=== PATIENT | female | born 1955 | race African-American/Black ===

== ENCOUNTER 2019-09-29 04:09 | Observation (INO) ==
[2019-09-29] MEDS ORDERED: ALUM/MAG/SIMETH/LIDO VISC 1:1 30 ML BOTTLE PO STA (04:23)
[2019-09-29] MEDS ORDERED: ASPIRIN 325 MG TABLET PO STA (04:23)
[2019-09-29] MEDS ORDERED: NITROGLYCERIN 2% OINT 1 INCH/GM PACK TOP STA (04:23)
[2019-09-29] MEDS ORDERED: MORPHINE 4 MG/1 ML VIAL IV STA (04:23)
[2019-09-29] MEDS ORDERED: ONDANSETRON 4 MG/2 ML VIAL IV STA (04:23)
[2019-09-29] MEDS ORDERED: ONDANSETRON 4 MG/2 ML VIAL ONE (04:33)
[2019-09-29] MEDS ORDERED: NITROGLYCERIN 2% OINT 1 INCH/GM PACK TOP ONE (04:33)
[2019-09-29] MEDS ORDERED: ASPIRIN 325 MG TABLET ONE (04:34)
[2019-09-29] MEDS ORDERED: ALUM/MAG/SIMETH/LIDO VISC 1:1 30 ML BOTTLE PO ONE (04:34)
[2019-09-29] MEDS ORDERED: MORPHINE 4 MG/1 ML VIAL ONE (04:34)
[2019-09-29 04:59] LABS: Basophils # 0.1 10*3/uL (0.0-0.2); Basophils % 0.5 % (0.0-0.8); Eosinophils # 0.3 10*3/uL (0.0-0.87); Eosinophils % 2.8 % (0.00-10.9); Hematocrit 41.6 VOL% (35.7-47.0); Hemoglobin 13.4 GM/DL (12.0-16.0); Immature Granulocytes % 0.2 %; Immature Granulocytes Absolute 0.02 #; Lymphocytes # 2.3 10*3/uL (1.4-4.0); Lymphocytes % 24.7 % (21.3-54.2); Mean Corpuscular HGB Conc 32.2 GM/DL (32-36); Mean Platelet Volume 10.6 FL (9.6-12.0); Monocytes % 6.1 % (1.7-12.7); Neutrophils % 65.7 % (38.7-73.9); Platelet Count 235 T/CUMM (130-400); Red Blood Count 4.29 MC/CUMM (3.8-5.5); Red Cell Distribution Width 12.5 % (9.3-17.3); White Blood Count 9.4 T/CUMM (4-12)
[2019-09-29 05:00] LABS: Apearance,Urine CLEAR (Clear); Bilirubin,Urine Negative (Negative); Blood, Urine Negative (Negative); Glucose,Urine (UA) Negative (Negative); Ketones,Urine Negative (Negative); Nitrite,Urine Negative (Negative); Protein,Urine Negative; RBC,Urine 3 /HPF (0-4); Urine Color Colorless (Yellow); Urine Specific Gravity 1.003 (1.001-1.035); Urine Urobilinogen < 2.0 EU/DL (0.2-1.0); WBC,Urine <1 /HPF (0-6)
[2019-09-29 05:08] LABS: PT Patient Result 10.8 SECS (9.6-12.2)
[2019-09-29 05:17] LABS: Albumin 3.8 G/DL (3.4-5.0); Bilirubin,Total 0.4 MG/DL (0.2-1.0); Calcium 9.4 MG/DL (8.5-10.1); Osmolality,Calculated 285.1 MOS/KG (273-304); Total Protein 7.7 G/DL (6.4-8.3)
[2019-09-29] MEDS ORDERED: hydrALAZINE 20 MG/1 ML VIAL IV STA (05:23)
[2019-09-29] MEDS ORDERED: ACETAMINOPHEN 325 MG TABLET PO PRN (05:31)
[2019-09-29] MEDS ORDERED: MORPHINE 4 MG/1 ML VIAL IV PRN (05:31)
[2019-09-29] MEDS ORDERED: guaiFENesin/DM ER 600-30 MG TABLET PO PRN (05:31)
[2019-09-29] MEDS ORDERED: ONDANSETRON 4 MG/2 ML VIAL IV PRN (05:31)
[2019-09-29] MEDS ORDERED: PROMETHAZINE 25 MG TABLET PO PRN (05:31)
[2019-09-29] MEDS ORDERED: DOCUSATE SODIUM 100 MG CAPSULE PO PRN (05:31)
[2019-09-29] MEDS ORDERED: hydrALAZINE 20 MG/1 ML VIAL IV PRN (05:36)
[2019-09-29] MEDS ORDERED: ENOXAPARIN 40 MG/0.4 ML SYRINGE SUBCUT SCH (06:00)
[2019-09-29] MEDS ORDERED: NITROGLYCERIN SL 0.4 MG TABLET SL PRN (06:12)
[2019-09-29] MEDS ORDERED: hydroCHLOROthiazide 12.5 MG CAPSULE PO SCH (09:00)
[2019-09-29] MEDS ORDERED: PANTOPRAZOLE 40 MG TABLET PO SCH (09:00)
[2019-09-29] MEDS ORDERED: ASPIRIN CHEW 81 MG TABLET PO SCH (09:00)
[2019-09-29] MEDS ORDERED: METOPROLOL SUCCINATE XL 25 MG TABLET PO SCH (09:00)
[2019-09-29] MEDS ORDERED: amLODIPine 5 MG TABLET PO SCH (11:00)
[2019-09-29 12:07] VITALS: BP 127/76
== END 2019-09-29 15:48 | disposition home or self-care (01) ==
LOC: N.EDINP 04:09 → N.ED 04:09 → SUATTDRO 05:31 → N.EDINP 07:29 → N.2W 08:35
PROVIDERS: ADMIT Internal Medicine; ATTEND Internal Medicine